=== PATIENT | male | born 2000 | race Hispanic/Latino ===

== ENCOUNTER 2018-09-16 08:01 | Emergency (ER) | payer OTHER ==
[~2018-09-16] VITALS: Ht 177.8 cm; Wt 86.4 kg
[2018-09-16 09:46] VITALS: BP 129/79
--- NOTE | 2018-09-16 09:54 | REP ---
RIGHT HAND, FOUR VIEWS: There is no evidence of an acute fracture, dislocation or intrinsic bone disease. IMPRESSION: No fracture or dislocation. Electronically Signed by Juanpablo Alanis MD 09/16/2018 03:13 P
== END 2018-09-16 09:51 | disposition home or self-care (01) ==
LOC: M ED 08:01
DX: M79.641 Pain in right hand (principal); F17.210 Nicotine dependence, cigarettes, uncomplicated

== ENCOUNTER 2019-12-03 09:30 | Emergency (ER) | payer OTHER, SELFPAY ==
[~2019-12-03] VITALS: Ht 177.8 cm; Wt 92.7 kg
[2019-12-03] MEDS ORDERED: IBUPROFEN 800 MG TAB PO ONE (10:45)
--- NOTE | 2019-12-03 11:00 | REPVR ---
PROCEDURE INFORMATION: Exam: XR Right Ankle Exam date and time: 12/03/2019 9:58 AM Age: 19 years old Clinical indication: Injury or trauma; Fall; Initial encounter; Blunt trauma; Ankle; Right TECHNIQUE: Imaging protocol: XR Right ankle. Views: 3 or more views. COMPARISON: No relevant prior studies available. FINDINGS: Bones/joints: Bones are intact and the ankle mortise is preserved. No acute fracture. No dislocation. Soft tissues: Generalized soft tissue swelling, most pronounced laterally. IMPRESSION: Soft tissue swelling. No acute fracture or dislocation. Electronically signed by: Сергей Harden On 12/03/2019 10:59:51 AM
[2019-12-03] MEDS ORDERED: IBUP80TA PO (11:46)
[2019-12-03 11:50] VITALS: BP 135/77
== END 2019-12-03 12:06 | disposition home or self-care (01) ==
LOC: M ED 09:30
DX: S93.401A Sprain of unspecified ligament of right ankle, initial encounter (principal); X50.9XXA Other and unspecified overexertion or strenuous movements or postures, initial encounter; Y92.830 Public park as the place of occurrence of the external cause; Y93.67 Activity, basketball; F17.200 Nicotine dependence, unspecified, uncomplicated

== ENCOUNTER 2021-05-26 14:05 | Emergency (ER) | payer OTHER, SELFPAY ==
[~2021-05-26] VITALS: Ht 175.3 cm; Wt 75.5 kg
[~2021-05-26 14:05] MED LIST: IBUP80TA PO
[2021-05-26 14:48] LABS: BILIRUBIN, URINE MANUAL NEGATIVE (NEGATIVE); GLUCOSE, URINE (UA) MANUAL NEGATIVE (NEGATIVE); KETONE, URINE MANUAL 1+ mg/dL (NEGATIVE); UROBILINOGEN, URINE MANUAL 4 MG mg/dl (NORMAL)
[2021-05-26 16:21] LABS: GC DNA AMPLIFICATION NEGATIVE (NEGATIVE)
[2021-05-26 16:29] LABS: HIV 1&2 SCREEN CENTAUR NEGATIVE (NEGATIVE)
[2021-05-26 17:51] VITALS: BP 132/72
== END 2021-05-26 17:53 | disposition home or self-care (01) ==
LOC: M ED 14:05
DX: Z20.2 Contact with and (suspected) exposure to infections with a predominantly sexual mode of transmission (principal); R30.0 Dysuria; Z91.018 Allergy to other foods; J30.1 Allergic rhinitis due to pollen; F17.210 Nicotine dependence, cigarettes, uncomplicated

== ENCOUNTER 2021-12-16 10:46 | Emergency (ER) | payer SELFPAY ==
[~2021-12-16] VITALS: Ht 177.8 cm; Wt 72.7 kg
[2021-12-16 10:46] VITALS: BP 144/88
[2021-12-16] MEDS ORDERED: LIDOCAINE 1% MDV 20ML VIAL SC ONE (11:25)
[2021-12-16] MEDS ORDERED: NEOSPORIN OINT 0.9 GM PKT TOP ONE (12:20)
[2021-12-16] MEDS ORDERED: CEPHALEXIN 500 MG CAP PO ONE (12:20)
[2021-12-16] MEDS ORDERED: CEPH500C PO (12:21)
== END 2021-12-16 12:34 | disposition home or self-care (01) ==
LOC: M ED 10:46
DX: S66.211A Strain of extensor muscle, fascia and tendon of right thumb at wrist and hand level, initial encounter (principal); S61.411A Laceration without foreign body of right hand, initial encounter; S61.511A Laceration without foreign body of right wrist, initial encounter; W25.XXXA Contact with sharp glass, initial encounter; Y92.018 Other place in single-family (private) house as the place of occurrence of the external cause

== ENCOUNTER → 2021-12-20 | Outpatient (CLI) | payer SELFPAY ==
[~2021-12-20] MED LIST changes: +CEPH500C PO
== END ==
LOC: M LABSMTC 10:04
PROVIDERS: ATTEND Anesthesiology
DX: Z01.818 Encounter for other preprocedural examination (principal); Z20.822 Contact with and (suspected) exposure to COVID-19

== ENCOUNTER 2021-12-24 06:08 | Day surgery (SDC) | payer SELFPAY ==
[~2021-12-24] VITALS: Ht 177.8 cm; Wt 74.3 kg
[~2021-12-24 06:08] MED LIST changes: +ceFAZolin SOD 2 GM in IV 1 EA IV ONE
[2021-12-24] MEDS ORDERED: LIDOCAINE 2% 100MG/5ML SDV (FOR ANES.) As Ordered ONE ×2 (06:53→09:29)
[2021-12-24] MEDS ORDERED: propofoL 200 MG/20 ML VIAL As Ordered ONE ×2 (06:53→09:29)
[2021-12-24] MEDS ORDERED: fentaNYL 250 MCG/5 ML INJECTION As Ordered ONE (06:56)
[2021-12-24] MEDS ORDERED: MIDAZOLAM INJ 2MG/2ML VIAL (J2250 PER 1MG) As Ordered ONE (06:57)
[2021-12-24] MEDS ORDERED: dexameTHASONE 4 MG/ML 1ML VIAL (J1100 PER 1MG) As Ordered ONE (07:04)
[2021-12-24] MEDS ORDERED: ONDANSETRON 4MG 2ML VIAL As Ordered ONE (07:04)
[2021-12-24] MEDS ORDERED: BUPIVACAINE/EPIN 0.25% 30 ML VIAL As Ordered ONE (07:14)
[2021-12-24] MEDS ORDERED: BUPIVACAINE HCL 0.25% 30ML VIAL As Ordered ONE (07:14)
[2021-12-24] MEDS ORDERED: PERCOCET 5MG/325MG TAB PO PRN ×2 (07:30→10:05)
[2021-12-24] MEDS ORDERED: fentaNYL 100 MCG/2 ML INJECTION IV PRN ×2 (07:30→10:05)
[2021-12-24] MEDS ORDERED: LIDOCAINE 1% SDV 5ML VIAL SC PRN (07:30)
[2021-12-24] MEDS ORDERED: LR 1,000 ML IV SCH ×3 (07:30→10:05)
[2021-12-24] MEDS ORDERED: MORPHINE 2 MG/ML 1ML VIAL IV PRN ×2 (07:30→10:05)
[2021-12-24] MEDS ORDERED: ONDANSETRON 4MG 2ML VIAL IV PRN ×2 (07:30→10:05)
[2021-12-24] MEDS ORDERED: KETOROLAC 60MG 2ML VIAL As Ordered ONE (07:40)
[2021-12-24] MEDS ORDERED: BACITRACIN OINTMENT 30GM TUBE As Ordered ONE (08:54)
[2021-12-24 10:13] VITALS: BP 122/69
== END 2021-12-24 10:56 | disposition home or self-care (01) ==
LOC: M SDC 06:08
PROVIDERS: ATTEND Orthopaedic Surgery Hand Surgery
DX: S61.511A Laceration without foreign body of right wrist, initial encounter (principal); S56.311A Strain of extensor or abductor muscles, fascia and tendons of right thumb at forearm level, initial encounter; S66.211A Strain of extensor muscle, fascia and tendon of right thumb at wrist and hand level, initial encounter; S64.21XA Injury of radial nerve at wrist and hand level of right arm, initial encounter; W25.XXXA Contact with sharp glass, initial encounter; Y92.098 Other place in other non-institutional residence as the place of occurrence of the external cause; F17.200 Nicotine dependence, unspecified, uncomplicated; J30.1 Allergic rhinitis due to pollen; Z91.013 Allergy to seafood
CPT/HCPCS: 11044; 25260; 25270; 64910; C1762; J0690; J1100; J1885; J2250; J2405; J3010